=== PATIENT | female | born 1960 | race Caucasian/White ===

== ENCOUNTER 2016-05-21 19:40 | Emergency (ER) | payer OTHER ==
[~2016-05-21] VITALS: Ht 160 cm; Wt 74.9 kg
[~2016-05-21 19:40] MED LIST: ADVAIR 100/501 DISK IH; ALLEGRA30 MG PO; ASPIR-LOW81 MG PO; CALCIUM 500 +1 EACH PO; CALICUM 500+D1 EACH PO; MAGNESIUM100 MG PO; NASONEX17 GM BOTH NARES; OSTEO BI-FLEX1 EAC1 PO; PRAVACHOL20 MG PO; VENTOLIN HFA18 GM IH; VOLTAREN 1% GE100 GM TP; XARELTO15 MG PO; ZITHROMAX Z-PA250 MG PO
[2016-05-21 20:16] LABS: HEMATOCRIT 43.1 % (36.0-46.0); MCH 29.5 PG (29.0-34.0); MCHC 32.5 G/DL (30.0-36.0); MCV 90.9 FL (83-99); RBC DIS.WIDTH-CV 11.7 % (11.8-14.6); RED BLOOD COUNT 4.74 M/uL (3.80-5.20); WHITE BLOOD COUNT 7.1 K/uL (4.1-10.2)
[2016-05-21 20:27] LABS: CHLORIDE 105 mEq/L (99-109); SODIUM 142 mEq/L (136-147)
[2016-05-21 20:28] LABS: GLUCOSE 83 mg/dL (70-99)
[2016-05-21 20:30] LABS: ANION GAP 8 MEQ/L (2-14)
[2016-05-21 20:32] LABS: GFR ESTIMATE (CALCULATED) 54 mL/min/
[2016-05-21 20:33] LABS: UREA NITROGEN (BUN) 18 mg/dL (9-23)
[2016-05-21 20:38] LABS: TROP-I INTERPRETATION NEGATIVE; TROPONIN-I < 0.01 ng/mL (0.0-0.30)
[2016-05-21 21:06] LABS: HEMATOLOGY COMMENT 1 SN; MEAN PLAT.VOLUME 11.1 uM^3 (9.5-12.4); PLAT.SUFFICIENCY ADEQUATE; PLATELET COUNT 203 K/uL (156-360)
[2016-05-21 22:32] LABS: TROP-I INTERPRETATION NEGATIVE; TROPONIN-I < 0.01 ng/mL (0.0-0.30)
[2016-05-22 00:15] VITALS: BP 118/75
== END 2016-05-22 00:17 | disposition home or self-care (01) ==
LOC: EME 19:40
PROVIDERS: Emergency Medicine
DX: R07.9 Chest pain, unspecified (principal); R06.02 Shortness of breath; D68.51 Activated protein C resistance; Z86.711 Personal history of pulmonary embolism; J45.909 Unspecified asthma, uncomplicated
CPT/HCPCS: 71020; 71275; 80048; 84484; 85027; 93005; 99281; 99285; J7030

== ENCOUNTER 2016-06-23 09:30 | Day surgery (SDC) | payer OTHER ==
[~2016-06-23] VITALS: Ht 161.3 cm; Wt 72.6 kg
[~2016-06-23 09:30] MED LIST changes: +CALCIUM 500 MG1 EACH PO; +FEXOFENADINE H180 MG PO; +FLONASE16 G1 BOTH NARES; +MAGNESIUM250 MG PO
[2016-06-23 13:11] LABS: HEMATOCRIT 46.1 % (36.0-46.0); MCH 29.2 PG (29.0-34.0); MCHC 32.1 G/DL (30.0-36.0); MCV 91.1 FL (83-99); MEAN PLAT.VOLUME 12.1 uM^3 (9.5-12.4); PLATELET COUNT 171 K/uL (156-360); RBC DIS.WIDTH-CV 12.1 % (11.8-14.6); RED BLOOD COUNT 5.06 M/uL (3.80-5.20)
[2016-06-23 13:22] LABS: ANION GAP 13 MEQ/L (2-14); CHLORIDE 107 MEQ/L (99-109); POTASSIUM 4.3 MEQ/L (3.7-5.4); SAMPLE HEMOLYSIS CHECK 0; SAMPLE ICTERIC CHECK 0; SAMPLE LIPEMIA CHECK 0; SODIUM 144 MEQ/L (136-147)
[2016-06-23 13:53] LABS: GFR ESTIMATE (CALCULATED) > 59 mL/min/; GLUCOSE 85 mg/dL (70-99); UREA NITROGEN (BUN) 10 mg/dL (9-23)
== END 2016-06-23 18:53 | disposition home or self-care (01) ==
LOC: CATH 09:30
PROVIDERS: Internal Medicine Cardiovascular Disease
DX: R07.9 Chest pain, unspecified (principal); R94.39 Abnormal result of other cardiovascular function study; R94.31 Abnormal electrocardiogram [ECG] [EKG]
CPT/HCPCS: 80048; 85027; 93005; C1769; C1887; J1644; J2250; J3010

== ENCOUNTER → 2016-08-25 | Outpatient (CLI) | payer OTHER | END | disposition home or self-care (01) | LOC: RES 08-18 09:00 | DX: J98.8 Other specified respiratory disorders (principal) | CPT/HCPCS: 94060; 94726; 94729 ==

== ENCOUNTER 2017-02-06 07:18 | Emergency (ER) | payer OTHER ==
[~2017-02-06] VITALS: Ht 160 cm; Wt 70.7 kg
[2017-02-06 07:52] LABS: HEMATOCRIT 43.2 % (36.0-46.0); MCHC 33.1 G/DL (30.0-36.0); MCV 90.8 FL (83-99); MEAN PLAT.VOLUME 11.6 uM^3 (9.5-12.4); PLATELET COUNT 168 K/uL (156-360); RBC DIS.WIDTH-CV 12.2 % (11.8-14.6); RBC DIS.WIDTH-SD 40.5 % (39-53); RED BLOOD COUNT 4.76 M/uL (3.80-5.20); WHITE BLOOD COUNT 5.3 K/uL (4.1-10.2)
[2017-02-06 08:00] LABS: CHLORIDE 106 mEq/L (99-109); SODIUM 140 mEq/L (136-147)
[2017-02-06 08:01] LABS: GLUCOSE 79 mg/dL (70-99)
[2017-02-06 08:03] LABS: ANION GAP 6 MEQ/L (2-14)
[2017-02-06 08:05] LABS: GFR ESTIMATE (CALCULATED) > 59 mL/min/
[2017-02-06 08:06] LABS: UREA NITROGEN (BUN) 12 mg/dL (9-23)
[2017-02-06 08:13] LABS: TROP-I INTERPRETATION NEGATIVE; TROPONIN-I < 0.01 ng/mL (0.0-0.30)
[2017-02-06] MEDS ORDERED: ATROVENT 00.5 MG/2.5 IH (10:36)
[2017-02-06] MEDS ORDERED: PROVENTIL,2.5 MG/3 M IH (10:36)
[2017-02-06 10:50] LABS: TROP-I INTERPRETATION NEGATIVE; TROPONIN-I < 0.01 ng/mL (0.0-0.30)
[2017-02-06 11:18] VITALS: BP 134/64
== END 2017-02-06 11:39 | disposition home or self-care (01) ==
LOC: EME 07:18
PROVIDERS: Nurse Practitioner Family
DX: R07.9 Chest pain, unspecified (principal); J06.9 Acute upper respiratory infection, unspecified; J45.909 Unspecified asthma, uncomplicated; K21.9 Gastro-esophageal reflux disease without esophagitis; Z86.711 Personal history of pulmonary embolism; Z88.8 Allergy status to other drugs, medicaments and biological substances
CPT/HCPCS: 71275; 80048; 84484; 85027; 93005; 94640; 99281; 99284; J7030

== ENCOUNTER 2017-02-13 18:52 | Emergency (ER) | payer OTHER ==
[~2017-02-13] VITALS: Ht 160 cm; Wt 70.5 kg
[~2017-02-13 18:52] MED LIST changes: +ATROVENT 00.5 MG/2.5 IH; +PROVENTIL,2.5 MG/3 M IH
[2017-02-13 21:42] LABS: MCH 29.8 PG (29.0-34.0); MCHC 33.1 G/DL (30.0-36.0); MEAN PLAT.VOLUME 11.7 uM^3 (9.5-12.4); PLATELET COUNT 206 K/uL (156-360); RBC DIS.WIDTH-CV 12.4 % (11.8-14.6); RBC DIS.WIDTH-SD 40.6 % (39-53); WHITE BLOOD COUNT 8.8 K/uL (4.1-10.2)
[2017-02-13 21:59] LABS: CHLORIDE 105 mEq/L (99-109); POTASSIUM 4.4 mEq/L (3.7-5.4); SODIUM 141 mEq/L (136-147)
[2017-02-13 22:01] LABS: GLUCOSE 84 mg/dL (70-99)
[2017-02-13 22:03] LABS: ANION GAP 10 MEQ/L (2-14)
[2017-02-13 22:05] LABS: GFR ESTIMATE (CALCULATED) > 59 mL/min/
[2017-02-13 22:06] LABS: UREA NITROGEN (BUN) 15 mg/dL (9-23)
[2017-02-13 22:07] LABS: TROP-I INTERPRETATION NEGATIVE; TROPONIN-I < 0.01 ng/mL (0.0-0.30)
[2017-02-13 22:44] VITALS: BP 117/70
== END 2017-02-13 22:45 | disposition home or self-care (01) ==
LOC: EME 18:52
PROVIDERS: Physician Assistant
DX: R06.00 Dyspnea, unspecified (principal); J45.909 Unspecified asthma, uncomplicated; K21.9 Gastro-esophageal reflux disease without esophagitis; G89.29 Other chronic pain; M54.9 Dorsalgia, unspecified; K44.9 Diaphragmatic hernia without obstruction or gangrene; Z82.49 Family history of ischemic heart disease and other diseases of the circulatory system; Z86.711 Personal history of pulmonary embolism; Z88.6 Allergy status to analgesic agent
CPT/HCPCS: 71020; 80048; 84484; 85027; 93005; 99281; 99284; J7030